=== PATIENT | male | born 1985 | race Two or more races ===

== ENCOUNTER 2021-07-17 18:00 | Emergency (ER) | payer OTHER, SELFPAY ==
--- NOTE | ~2021-07-17 | XR_ITS ---
EXAMINATION: XR chest 1V portable DATE: 07/17/2021 18:35 INDICATION: 2 days of cough and fever TECHNIQUE: frontal view of the chest was obtained. COMPARISON: None FINDINGS: Subtle left perihilar opacities which could represent atelectasis or pneumonia. Right lung is clear. No pleural effusion or pneumothorax. The cardiomediastinal silhouette is normal. IMPRESSION: 1. Subtle opacities in the left perihilar region which could represent atelectasis and/or pneumonia. Reviewed, dictated and finalized at location A. K INSPECTOR IMPRESSION: 1. Subtle opacities in the left perihilar region which could represent atelecta sis and/or pneumonia.
[2021-07-17 17:58] VITALS: BP 118/79; PULSE 94; RESP 18; TEMP 37.3; O2SAT 100
[2021-07-17 18:27] LABS: Basophils Percent Auto 0.2 % (0.2-1.2); Eosinophils Percent Auto 0.2 % (0-4.4); Hematocrit 40.4 % (42.0-52.0); Hemoglobin 13.3 g/dL (14.0-18.0); Immature Granulocyte Absolute 0.01 K/mm3 (0.00-0.031); Immature Granulocyte Percent A 0.2 % (0-0.5); Lymphocytes Absolute Auto 1.41 K/mm3 (0.9-3.2); Lymphocytes Percent Auto 28.1 % (18.3-44.2); Mean Corpuscular HGB Conc 32.9 g/dl (32-36); Mean Corpuscular Hemoglobin 27.3 pg (26-34); Mean Platelet Volume 9.6 fl (7.4-10.4); Monocytes Absolute Auto 0.3 K/mm3 (0.1-0.6); Monocytes Percent Auto 6.4 % (2.6-8.5); Neutrophils Absolute Auto 3.3 K/mm3 (1.3-6.7); Neutrophils Percent Auto 64.9 % (45.5-73.1); Platelet Count Result 212 k/mm3 (150-375); Red Blood Count 4.87 M/mm3 (4.6-6.20); Red Cell Distribution Width 13.2 % (11.5-14.5)
[2021-07-17] MEDS: ONDANSETRON INJ 4 MG/2 ML VIAL IV PUSH (18:32)
[2021-07-17] MEDS: SODIUM CHLORIDE 0.9% IV 1,000 ML 999 ML IV CONT (18:32)
[2021-07-17 18:38] LABS: Alanine Aminotransferase 88 U/L (4-50); Albumin Level 4.3 g/dL (3.5-5.1); Alkaline Phosphatase 79 U/L (38-126); Anion Gap 9 mmol/L (8-16); Aspartate Amino Transferase 78 U/L (17-59); Bilirubin,Total 0.7 mg/dL (0.2-1.3); Blood Urea Nitrogen 14 mg/dL (9-20); Calcium 8.5 mg/dL (8.4-10.2); Carbon Dioxide 26 mmol/L (22-30); Chloride 101 mmol/L (98-107); Estimated CRCL calculation 73 ml/min; Estimated Glomerular Filt Rate > 60; Glucose 118 mg/dL (65-110); Lipase 70 U/L (23-300); Potassium 3.3 mmol/L (3.4-5.0); Sodium 136 mmol/L (137-145)
[2021-07-17 19:14] LABS: SARS-CoV-2 RNA PCR Positive
[2021-07-17 19:25] LABS: INR 1.1; Prothrombin Time 13.4 Seconds (11.1-14.7)
[2021-07-17 19:26] LABS: Partial Thromboplastin Time 34.9 SECONDS (22.3-36.8)
[2021-07-17 19:27] LABS: Lactic Acid Reflex 1.3 mmol/L (0.7-2.1)
--- NOTE | 2021-07-17 20:00 | ED.GENADULT ---
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 He denies any rectal bleeding hematemesis or other complaints and on arrival does not appear distressed Related Data Allergies Allergy/AdvReac Type Severity Reaction Status Date / Time No Known Allergies Allergy Verified 07/17/21 18:02 Review of Systems Review of Systems: All systems reviewed & are unremarkable except as noted in HPI and below Exam Narrative: GENERAL: Well-appearing, well-nourished, and in no acute distress. HEAD: Normocephalic, atraumatic. EYES: PERRLA and EOMI. ENT: Nares clear, no rhinorrhea or epistaxis. Mucous membranes moist. CHEST: Clear to auscultation. No respiratory distress. No wheezes rales or rhonchi HEART: Regular rate and rhythm. No murmur heard. Normal peripheral pulses. EXTREMITIES: Normal range of motion. No edema. SKIN: Warm, dry, no rash. NEURO: No focal deficits. Alert and oriented x3. PSYCH: Normal mood and affect. Course Course Emergency Course: Patient positive for COVID-19 no other high risk changes in the imaging he will be discharged home there is no hypoxemia he had improvement with medications ABCs and vital signs intact and stable he has been given indications for return he agrees with the treatment plan Vital Signs Vital signs: Vital Signs Temperature 99.2 F 07/17/21 17:58 Pulse Rate 94 07/17/21 17:58 Respiratory Rate 18 07/17/21 17:58 Blood Pressure 118/79 07/17/21 17:58 Pulse Oximetry 100 07/17/21 17:58 Temperature 99.2 F 07/17/21 17:58 Pulse Rate 94 07/17/21 17:58 Respiratory Rate 18 07/17/21 17:58 Blood Pressure 118/79 07/17/21 17:58 Pulse Oximetry 100 07/17/21 17:58 Medical Decision Making [facility] [place] Narrative Medical decision making narrative: Patient with COVID-19 diagnosis will be discharged home given indications for return is afebrile appearing nondistressed agreement with the treatment plan feeling better with interventions to include hydration Vital Signs Vital Signs: Vital Signs Temperature 99.2 F 07/17/21 17:58 Pulse Rate 94 07/17/21 17:58 Respiratory Rate 18 07/17/21 17:58 Blood Pressure 118/79 07/17/21 17:58 Pulse Oximetry 100 07/17/21 17:58 Temperature 99.2 F 07/17/21 17:58 Pulse Rate 94 07/17/21 17:58 Respiratory Rate 18 07/17/21 17:58 Blood Pressure 118/79 07/17/21 17:58 Pulse Oximetry 100 07/17/21 17:58 Lab Data Result diagrams: 07/17/21 18:22 07/17/21 18:22 Labs: Lab Results 07/17/21 07/17/21 07/17/21 Range/Units 18:22 18:22 18:33 WBC 5.0 (4.5-10.0) K/mm3 RBC 4.87 (4.6-6.20) M/mm3 Hgb 13.3 L (14.0-18.0) g/dL Hct 40.4 L (42.0-52.0) % MCV 83.0 (80-100) fl MCH 27.3 (26-34) pg MCHC 32.9 (32-36) g/dl RDW 13.2 (11.5-14.5) % Plt Count 212 (150-375) k/mm3 MPV 9.6 (7.4-10.4) fl Immature Gran % (Auto) 0.2 (0-0.5) % Neut % (Auto) 64.9 (45.5-73.1) % Lymph % (Auto) 28.1 (18.3-44.2) % [place] % (Auto) 6.4 (2.6-8.5) % Eos % (Auto) 0.2 (0-4.4) % Baso % (Auto) 0.2 (0.2-1.2) % Lymph # (Auto) 1.41 (0.9-3.2) K/mm3 [place] # (Auto) 0.3 (0.1-0.6) K/mm3 Eos # (Auto) 0.0 (0-0.3) K/mm3 Baso # (Auto) 0.0 (0.0-0.1) K/mm3 Abs Immat Gran (auto) 0.01 (0.00-0.031) K/mm3 Absolute Neuts (auto) 3.3 (1.3-6.7) K/mm3 Absolute Nucleated RBC 0.0 (0.0-0.012) K/mm3 Nucleated RBC % 0.0 (0.0-0.2) % PT (11.1-14.7) Seconds INR APTT (22.3
[2021-07-17 20:14] VITALS: BP 109/74; PULSE 71; RESP 13; O2SAT 99
[2021-07-17 20:15] VITALS: BP 109/74; PULSE 71; RESP 13; O2SAT 99
== END 2021-07-17 20:16 | disposition home or self-care (01) ==
PROVIDERS: Emergency Medicine Emergency Medical Services; Emergency Provider Emergency Medicine
DX: U07.1 COVID-19 (principal); R91.8 Other nonspecific abnormal finding of lung field
CPT/HCPCS: 36415; 71045; 80053; 83605; 83690; 85025; 85610; 85730; 86140; 87040; 96365; 96375; 99284; C9803; J0131; J2405; J7030; U0003; U0005